=== PATIENT | female | born 1995 | race Caucasian/White ===

== ENCOUNTER 2024-05-15 13:55 | Day surgery (SDC) | payer OTHER, SELFPAY ==
--- NOTE | 2024-05-15 | PATH_ITS ---
[facility] Accession Number: [id number] No. of containers..01 Tissue . 01 Material submitted: . colon - RANDOM COLON . 01 Diagnosis: Colon, random, biopsies: Fragments of benign colonic mucosa, with benign lymphoid follicle. Negative for histologic features of microscopic colitis. Negative for active or chronic colitis. TXN 05/17/2024 1027 Local . 01 Electronically signed: . Berna Schmidt MD, Pathologist NPI- [id number] . 01 Gross description: . Received in formalin with two patient identifiers and random colon biopsies, are four tovar soft tissue fragments, 0.3 to 0.5 cm in greatest dimension. Submitted in A1. ([id number]) /MRV 05/16/2024 1452 Local . 01 Pathologist provided ICD-10: K52.9, R15.2 . 01 CPT . 366501 Specimen Comment: A courtesy copy of this report has been sent to [phone] Performed at: [address] [id number] MD Eros Thomas MD Phone: [phone]
[2024-05-15 15:02] VITALS: BP 98/65; PULSE 71; RESP 16; TEMP 36.3; O2SAT 100; BMI 24.0
[2024-05-15] MEDS: LACTATED RINGERS 1,000 ML 42 ML IV (15:15)
--- NOTE | 2024-05-15 15:29 | PM.OP.COLON ---
Operative Date/Time/Diagnoses Date of procedure: 05/15/24 Pre-op diagnosis: See indication and findings Procedure & Clinicians Study performed: Colonoscopy Indications: Bloating abdominal pain and loose stools Surgeon: Jemal Vega Procedure Notes Procedure in detail: After informed consent was obtained the patient was placed in left lateral decubitus position. The video colonoscope was introduced the rectum slowly advanced cecum. Preparation was good. On slow withdrawal mucosa was carefully examined. The scope was removed. The patient tolerated procedure well. Blood loss none Complications none Sedation mac Findings 1. Normal colonoscopy to cecum. Random biopsies taken to rule out microscopic colitis Will be in touch patient regarding the pathology but otherwise she should follow-up with Valentin Jorgensen in the office
--- NOTE | 2024-05-15 15:31 | PM.HP.1 ---
History of Present Illness History of Present Illness Date Patient Seen: 05/15/24 Chief complaint: Dx Colonoscopy w/poss bx Narrative: Abdominal pain bloating and loose stools PFSH Social History Smoking Status: Never smoker Meds Home Medications and Allergies Home Medications Medication Instructions Recorded Confirmed Type No Known Home Medications 05/15/24 05/15/24 History Allergies Allergy/AdvReac Type Severity Reaction Status Date / Time No Known Drug Allergies Allergy Verified 05/15/24 15:00 Exam Vital Signs (past 8 hours): - 05/15/24 15:02 Temperature 97.4 F L Pulse Rate 71 Respiratory Rate 16 Blood Pressure 98/65 Pulse Oximetry 100 Oxygen Delivery Method Room Air Oxygen Delivery Method Room Air Narrative Exam Narrative: Oropharynx free of lesions Chest clear to auscultation percussion Cardiac exam reveals no S3 or murmur Assessment & Plan Assessment & Plan narrative: Loose stools abdominal discomfort and bloating and flatulence. Rule out underlying colitis. Risks, benefits, alternatives have been explained. Time-Based Coding :: [TOTAL MINUTES] spent with patient and on the chart (including review of chart, obtaining history, exam, reviewing outside data, placing orders, documenting exam and treatment plan, and counseling patient) on [DATE].
[2024-05-15 15:56] VITALS: BP 86/46; PULSE 73; RESP 14; TEMP 36.3; O2SAT 95
[2024-05-15 16:00] VITALS: BP 87/46; PULSE 65; RESP 16; O2SAT 95
[2024-05-15 16:02] VITALS: BP 89/46; PULSE 62; RESP 17; O2SAT 96
[2024-05-15 16:05] VITALS: BP 96/55; PULSE 64; RESP 15; O2SAT 98
[2024-05-15 16:12] VITALS: BP 97/55; PULSE 80; RESP 17; O2SAT 99
== END 2024-05-15 16:24 | disposition home or self-care (01) ==
PROVIDERS: Referring Provider Internal Medicine Gastroenterology; Visit Provider Internal Medicine Gastroenterology
PROC: 0DJD8ZZ Inspection of Lower Intestinal Tract, Via Natural or Artificial Opening Endoscopic (ICD-10-PCS; CPT 45378; principal; 2024-05-15 15:00)
DX: R10.9 Unspecified abdominal pain (principal); R19.7 Diarrhea, unspecified; R14.0 Abdominal distension (gaseous)
CPT/HCPCS: 45380; J2704